=== PATIENT | female | born 1990 | race Caucasian/White ===

== ENCOUNTER 2018-03-07 06:46 | Emergency (ER) | payer BC ==
[2018-03-07 07:09] VITALS: TEMP 97.2
[2018-03-07] MEDS ORDERED: ACETAMINOPHEN 325 MG TAB PO ONE (07:15)
[2018-03-07] MEDS ORDERED: IBUPROFEN 200 MG TAB PO ONE (07:15)
--- NOTE | 2018-03-07 07:24 | ED.PDOC ---
History of Present Illness - General Chief Complaint: Headache Stated Complaint: headache x3 months Time Seen by Provider: 03/07/18 07:04 Source: patient, RN notes reviewed, Vital Signs reviewed Exam Limitations: no limitations - History of Present Illness Initial Comments: She reports daily headaches for 2-3 months. She discussed it with her PCP, was told it was migraines but she declined to take any migraine meds. She did have a 2 week interval of no pain but they returned about 2 weeks ago. They are all identical starting in the morning (gradually after awakening) & building throughout the day. They do not prevent her from sleeping nor do they awaken her. She is pain free after sleeping. There are no aggravating or alleviating factors. They are localized to an area over the left forehead & have begun to radiate to the left ear. With each headache she has tinnitus, ear fullness & decreased hearing. She does not have dental pain, TMJ. photophobia or audiophobia. She has never had problems with headaches before & has had no h/o head injury. She doesn't know of anyone in her family who might have had migraines. Timing/Duration: other - 2-3 months ago Quality: moderate, throbbing Head Injury Location: frontal Recent Head Trauma: no recent headache/trauma, frequent headaches Improving Factors: nothing Worsening Factors: nothing Associated Symptoms: other - occasionally she has nausea Allergies/Adverse Reactions: Allergies Sulfa Antibiotics Allergy (Verified 03/07/18 06:58) Home Medications: Ambulatory Orders Viridiana-Pren 1 each PO DAILY 02/20/15 Qlmrudyzml-Sriusvbnmcuek-Oeqgv [Fioricet] 1 cap PO Q8HRS PRN #10 cap 03/07/18 Review of Systems - Review of Systems Constitutional: States: no symptoms reported EENTM: States: see HPI Respiratory: States: no symptoms reported Genitourinary: States: no symptoms reported Musculoskeletal: States: no symptoms reported Skin: States: no symptoms reported Neurological: States: see HPI Hematologic/Lymphatic: States: no symptoms reported Past Medical History (General) - Patient Medical History Hx Thyroid Disease: Yes Hx Renal Disease: No Hx MRSA: Yes - Arm 2007 MRSA Source:: Wound - Vaccination History Hx Tetanus, Diphtheria Vaccination: No Hx Influenza Vaccination: No Hx Pneumococcal Vaccination: No - Social History Hx Tobacco Use: Yes Hx Alcohol Use: No Hx Substance Use: No - Female History Patient is a Female of Child Bearing Age (10 -59 yrs old): Yes Hx Last Menstrual Period: 10/02/14 Expected Date of Delivery:: 07/02/15 Family Medical History - Family History Mother Family History: Unknown Hx Family;Other: pt states no family history to report. Physical Exam - Physical Exam General Appearance: Alert, Comfortable, No apparent distress, Well Developed, Well Groomed, Well Hydrated, Well Nourished, Other - She drove up in the parking lot as I was coming in for work. Appeared fine & was walking without difficulty. 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 03/07/18 08:30 Atypical headache syndrome. I do not feel this represents an SAH nor that an LP is indicated. 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 She has scheduled f/u with her PCP in a couple of hours & I have encouraged to keep it & provided her with a copy of her CT report. I have also recommended she talk to the PCP about a neurology referral. 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 Copy, Patient Portal Self Enrollment Instructions: DI for Headache Referrals: [facility] SENIOR IV FEED PROJECT ENGINEER [Primary Care Provider] - 03/07/18 9:45 am (keep your appointment this morning) Prescriptions: Dnvagqehqp-Qflulbgspqtss-Rsoib [Fioricet] 1 cap PO Q8HRS PRN #10 cap PRN Reason: Headache/Migraine Pain Home Medications: Ambulatory Orders Viridiana-Pren 1 each PO DAILY 02/20/15 Ziodrumnsk-Ovgrmhxodhmcp-Wmqsg [Fioricet] 1 cap PO Q8HRS PRN #10 cap 03/07/18
--- NOTE | 2018-03-07 07:48 | CT ---
Study: CT of the Head. Indication: headache Technique: Axial CT images of the head were acquired without intravenous contrast. This exam was performed according to our departmental dose-optimization program, which includes automated exposure control, adjustment of the mA and/or kV according to patient size and/or use of iterative reconstruction technique. Comparison: None. Findings: No CT evidence of acute ischemia, acute hemorrhage, mass, mass effect, midline shift, or extra-axial fluid collection. Ventricles are normal in configuration without hydrocephalus. Brain parenchyma demonstrates a normal appearance for patient age. Paranasal sinuses are adequately aerated. Mastoid air cells are adequately aerated. Osseous structures and soft tissues are unremarkable. Impression: 1. No CT evidence of acute intracranial abnormality. Electronically signed by: Kristofer Pompa MD 03/07/2018 7:47 AM CDT
[2018-03-07 08:09] VITALS: BP 111/70; O2SAT 100
== END 2018-03-07 08:23 | disposition home or self-care (01) ==
LOC: ER 06:46
DX: G44.041 Chronic paroxysmal hemicrania, intractable (principal); E07.9 Disorder of thyroid, unspecified; Z87.891 Personal history of nicotine dependence; Z88.2 Allergy status to sulfonamides

== ENCOUNTER 2018-05-04 17:28 | Emergency (ER) | payer BC ==
--- NOTE | 2018-05-04 17:52 | ED.PDOC ---
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 SHE WAS CONCERNED CONTACTED HER DR'S OFFICE IN [place] WHO ADVISED HER TO COME HERE. 11+0 BY DATES. WENT TO ER IN [place] YESTERDAY REVIEWED THOSE LABS AND US. US 8+4 WK IUP NO CARDIAC ACTIVITY. RH+, NL HGB. STATES DESIRED TO ATTEMPT TO PASS WITH NO INTERVENTION. CAME HOME. TODAY PASSED GESTATIONAL SAC INTACT ACCORDING TO PT BUT HAS HAD HEAVY BLEEDING AND PASSING CLOTS. 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 Denies: fever EENTM: States: no symptoms reported Respiratory: States: no symptoms reported Cardiology: States: no symptoms reported Gastrointestinal/Abdominal: States: abdominal pain. Denies: nausea, vomiting Genitourinary: States: other - VAG BLEEDING WITH CLOTS. Musculoskeletal: States: no symptoms reported Skin: States: no symptoms reported Neurological: States: no symptoms reported Endocrine: States: no symptoms reported Hematologic/Lymphatic: States: other - REPORTS SHE HAD HEAVY POST BLEEDING WITH HER FIRST THAT REQUIRED TRANSFUSION BUT DENIES BLEEDING HX OTHERWISE. Past Medical History (General) - Patient Medical History Hx Thyroid Disease: Yes Hx Renal Disease: No Hx MRSA: Yes - Arm 2008 MRSA Source:: Wound Surgical History: no surgical history - Vaccination History Hx Tetanus, Diphtheria Vaccination: No Hx Influenza Vaccination: No Hx Pneumococcal Vaccination: No - Social History Hx Tobacco Use: No Hx Alcohol Use: No Hx Substance Use: No - Female History Patient is a Female of Child Bearing Age (10 -59 yrs old): Yes Hx Last Menstrual Period: 02/16/18 Patient : Yes Expected Date of Delivery:: 07/02/15 Family Medical History - Family History Mother Family History: Unknown Hx Family;Other: pt states no family history to report. Physical Exam - Physical Exam General Appearance: Alert, No apparent distress Eyes, Ears, Nose, Throat Exam: PERRL/EOMI, normal ENT inspection Neck: non-tender, full range of motion, supple Cardiovascular/Respiratory: regular rate, rhythm, no M/R/G Gastrointestinal/Abdominal: normal bowel sounds, non tender, soft, no organomegaly Back Exam: normal inspection, no CVA tenderness Extremity: normal range of motion, non-tender, normal inspection Neurologic: alert, normal mood/affect Skin Exam: normal color, warm/dry Lymphatic: no adenopathy Progress - Progress Progress: 05/04/18 19:06 D/W DR BLOUNT DYE WORKER FOR DR STEEL (PT'S OB). REQUESTED REPEAT SONO. HAVE CALL US BUT NO RESPONSE OF NOW. IF NO US AVAILABLE RECOMMENDED CONTINUED OBSERVATION WITH METHERGINE. PT REFUSED METHERGINE. PT ALSO REFUSED NS BOLUS. HAS APPT TOMORROW WITH DR STEEL. ADVISED OK FOR D/C AND HAVE GIVEN EXPLICIT INSTRUCTIONS ON WHEN TO RETURN. 05/04/18 20:43 PELVIC US: NO IUP/RETAINED PLACENTAL FRAGMENTS. Departure - Departure Clinical Impression: Spontaneous ICD-10 Supporting Text: INEVITABLE VS INCOMPLETE. Disposition: Discharge to Home or Self Care Departure Forms: ED Discharge - Pt. Copy, Patient Portal Self Enrollment Referrals: [facility]EN[facility] IV HOSPITAL AIDE [Primary Care Provider] - 1-2 Weeks Home Medications: Ambulatory Orders Levothyroxine Sodium [Levothyroxine Sodium] 1 each PO DAILY 05/04/18
[2018-05-04] MEDS ORDERED: SODIUM CHLORIDE 0.9% 1000ML 1,000 ML IVS ONE (17:54)
--- NOTE | 2018-05-04 20:24 | US ---
EXAM DESCRIPTION: OB ,Early (0-14wks) CLINICAL HISTORY: 10wks 6days , bleeding COMPARISON: None. FINDINGS: [Transabdominal ] [ ] images of the pelvis were submitted. No IUP is seen. No previous ultrasound demonstrating IUP is available for comparison. Left ovarian cyst measures 21 x 21 x 25 mm. Endometrium is thickened at 13 mm. The uterus measures 11.1 x 6.3 x 6.2 cm, right ovary 23 x 26 x 22 mm, left ovary 31 x 32 x 28 mm. No IUP is seen. There is no sonographic evidence of ovarian torsion. There is no significant free fluid in the pelvis. IMPRESSION: No IUP is seen. Ectopic is not excluded by imaging but the patient reports having passed a sac and fetus this afternoon. Left ovarian cyst is almost certainly benign and no follow-up is recommended unless there is persistent clinical concern for ectopic , in which case follow-up to document resolution is recommended. Electronically signed by: Madi Bautista 05/04/2018 8:22 PM CDT
[2018-05-04 20:43] VITALS: BP 110/74; O2SAT 100
[2018-05-04 21:00] VITALS: TEMP 98.7
== END 2018-05-04 20:45 | disposition home or self-care (01) ==
LOC: ER 17:28
DX: O03.9 Complete or unspecified spontaneous abortion without complication (principal); E07.9 Disorder of thyroid, unspecified; Z88.2 Allergy status to sulfonamides

== ENCOUNTER 2018-05-25 17:57 | Emergency (ER) | payer BC ==
[2018-05-25 18:30] VITALS: TEMP 98.5; O2SAT 100
--- NOTE | 2018-05-25 19:05 | RAD ---
EXAM DESCRIPTION: Chest,2 Views CLINICAL HISTORY: 27 years Female chest pain, mild sob, 2 wks s/p sab COMPARISON: None. FINDINGS: The cardiomediastinal silhouette appears unremarkable. No consolidating infiltrates or pleural effusions. No pneumothorax. IMPRESSION: No acute abnormality is identified. Electronically signed by: Mary Power MD 05/25/2018 7:04 PM CDT
--- NOTE | 2018-05-25 19:22 | ED.PDOC ---
History of Present Illness - General Chief Complaint: Chest Pain/OK Stated Complaint: chest pain for 2 weeks Time Seen by Provider: 05/25/18 17:58 Source: patient Exam Limitations: no limitations - History of Present Illness Initial Comments: the patient is a 27-year-old female presenting to the emergency room secondary to atypical chest pain and atypical central upper back pain for the last couple of weeks. A couple weeks ago she did have a spontaneous miscarriage. She reports that she gets mildly short of breath with exercise and has some mild cramping between her shoulder blades when she goes for walking. No real focal chest pain. No nausea or vomiting. No diarrhea. She has had some mild anxiety.she has not yet started her oral antibiotic for her urinary tract infection. Timing/Duration: other - 2 weeks Severity: mild Improving Factors: nothing Worsening Factors: movement Associated Symptoms: chest pain, shortness of breath Allergies/Adverse Reactions: Allergies Sulfa Antibiotics Allergy (Verified 05/04/18 17:37) Home Medications: Ambulatory Orders Levothyroxine Sodium [Levothyroxine Sodium] 1 each PO DAILY 05/04/18 Liothyronine Sodium 12.5 mcg PO DAILY 05/25/18 Review of Systems - Review of Systems Constitutional: States: no symptoms reported EENTM: States: no symptoms reported Respiratory: States: short of breath Cardiology: States: chest pain Gastrointestinal/Abdominal: States: no symptoms reported Genitourinary: States: no symptoms reported Musculoskeletal: States: back pain Skin: States: no symptoms reported Neurological: States: anxiety Endocrine: States: no symptoms reported All other Systems: No Change from Baseline Past Medical History (General) - Patient Medical History Hx Stroke: No Hx Congestive Heart Failure: No Hx Thyroid Disease: Yes Hx Diabetes: No Hx Renal Disease: No Hx MRSA: Yes - Arm 2008 MRSA Source:: Wound Surgical History: no surgical history - Vaccination History Hx Tetanus, Diphtheria Vaccination: No Hx Influenza Vaccination: No Hx Pneumococcal Vaccination: No - Social History Hx Tobacco Use: Yes Hx Alcohol Use: No Hx Substance Use: No - Female History Patient is a Female of Child Bearing Age (10 -59 yrs old): Yes - had a miscarrage on 05/03/18-has not had a period since Hx Last Menstrual Period: 02/16/18 Patient : Yes Expected Date of Delivery:: 07/02/15 Family Medical History - Family History Mother Family History: Unknown Hx Family;Other: pt states no family history to report. Physical Exam - Physical Exam General Appearance: Alert, Anxious, No apparent distress Eye Exam: bilateral normal Ears, Nose, Throat: hearing grossly normal, normal ENT inspection, normal pharynx Neck: full range of motion, supple, normal inspection Respiratory: lungs clear, normal breath sounds, no respiratory distress, no accessory muscle use Cardiovascular/Chest: normal peripheral pulses, regular rate, rhythm, no edema Peripheral Pulses: radial,right: 2+, radial,left: 2+, dorsalis pedis,right: 2+, dorsalis pedis,left: 2+ Gastrointestinal/Abdominal: non tender, soft Rectal Exam: deferred Back Exam: normal inspection, no CVA tenderness, no vertebral tenderness Extremity: normal range of motion, non-tender, normal inspection, no pedal edema , normal capillary refill Neurologic: lens dotter II-XII nml as tested, no motor/sensory deficits, alert, normal mood/affect - she is anxious, oriented x 3 Skin Exam: normal color Comments: Vital Signs (72 hours) 05/25/18 05/25/18 18:26 19:01 Temperature 98.5 F Pulse Rate 70 Pulse Rate [ 70 70 Left Brachial] Respiratory 16 Rate Blood Pressure 112/62 [Left Arm] O2 Sat by Pulse 100 Oximetry Progress - Progress Progress: 05/25/18 19:22 the patient is a 27-year-old female presenting to the emergency room secondary to atypical chest and upper back pain present for the last couple of weeks. Source of this is not entirely certain however workup including lab work chest x-ray and EKG are all reassuring. I would encourage her to continue doing her exercises. Take big deep breaths and make herself cough. Stretching exercises can also help. ER warnings were given for any significant worsening. She can follow-up with her primary care doctor later this week otherwise. - Results/Orders Results/Orders: chest x-ray shows no acute pathology. Laboratory Tests 05/25/18 05/25/18 05/25/18 18:27 18:28 18:28 WBC 8.7 RBC 4.35 Hgb 12.7 Hct 38.3 MCV 88.0 MCH 29.2 MCHC 33.2 RDW 14.1 Plt Count 245 MPV 8.2 Absolute Neuts (auto) 6.10 Absolute Lymphs (auto) 1.80 Absolute Monos (auto) 0.60 Absolute Eos (auto) 0.10 Absolute Basos (auto) 0.10 Neutrophils % 70.2 Lymphocytes % 21.1 Monocytes % 7.0 Eosinophils % 1.1 Basophils % 0.6 D-Dimer, Quantitative 0.21 Sodium 140 Potassium 3.6 Chloride 106 Carbon Dioxide 27 Anion Gap 10.6 L BUN 9 Creatinine < 0.40 L BUN/Creatinine Ratio 22.0 H Random Glucose 102 Serum Osmolality 278.3 Calcium 9.2 Total Bilirubin 0.3 AST 20 ALT 13 Alkaline Phosphatase 56 Creatine Kinase 62 CK-MB (CK-2) 0.4 CK-MB (CK-2) % Not Reportable Troponin I < 0.02 B-Natriuretic Peptide 8.4 Serum Total Protein 7.5 Albumin 4.1 Globulin 3.4 Albumin/Globulin Ratio 1.2 Beta HCG, Quant 05/25/18 18:28 WBC RBC Hgb Hct MCV MCH MCHC RDW Plt Count MPV Absolute Neuts (auto) Absolute Lymphs (auto) Absolute Monos (auto) Absolute Eos (auto) Absolute Basos (auto) Neutrophils % Lymphocytes % Monocytes % Eosinophils % Basophils % D-Dimer, Quantitative Sodium Potassium Chloride Carbon Dioxide Anion Gap BUN Creatinine BUN/Creatinine Ratio Random Glucose Serum Osmolality Calcium Total Bilirubin AST ALT Alkaline Phosphatase Creatine Kinase CK-MB (CK-2) CK-MB (CK-2) % Troponin I B-Natriuretic Peptide Serum Total Protein Albumin Globulin Albumin/Globulin Ratio Beta HCG, Quant 0.7 EKG shows normal sinus rhythm at 69 bpm. Very mild right axis deviation. Normal R-wave progression. No acute ST segment changes or T-wave changes concerning for ischemia. Normal QT interval. Departure - Departure Clinical Impression: Atypical chest pain Disposition: Discharge to Home or Self Care Condition: Fair Departure Forms: ED Discharge - Pt. Copy, Patient Portal Self Enrollment Instructions: Chest Pain That Is Not Caused by the Heart (DC) Diet: regular diet Activity: increase activity as tolerated Referrals: [facility] SENIOR IV PHARMACOLOGIST [Primary Care Provider] - 1-5 Days Home Medications: Ambulatory Orders Levothyroxine Sodium [Levothyroxine Sodium] 1 each PO DAILY 05/04/18 Liothyronine Sodium 12.5 mcg PO DAILY 05/25/18 Additional Instructions: the patient is a 27-year-old female presenting to the emergency room secondary to atypical chest and upper back pain present for the last couple of weeks. Source of this is not entirely certain however workup including lab work chest x-ray and EKG are all reassuring. I would encourage her to continue doing her exercises. Take big deep breaths and make herself cough. Stretching exercises can also help. ER warnings were given for any significant worsening. She can follow-up with her primary care doctor later this week otherwise.
[2018-05-25 20:08] VITALS: BP 118/68
== END 2018-05-25 19:35 | disposition home or self-care (01) ==
LOC: ER 17:57
DX: R07.89 Other chest pain (principal); R06.02 Shortness of breath; M54.6 Pain in thoracic spine; E07.9 Disorder of thyroid, unspecified; Z88.2 Allergy status to sulfonamides; Z87.891 Personal history of nicotine dependence

== ENCOUNTER 2018-08-17 15:58 | Emergency (ER) | payer BC ==
[2018-08-17 16:12] VITALS: O2SAT 100
[2018-08-17] MEDS ORDERED: SODIUM CHLORIDE 0.9% (FLUSH) 10 ML SYG IV PRN (16:27)
--- NOTE | 2018-08-17 16:56 | ED.PDOC ---
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 PT IS APPROXIMATELY 9 WEEKS A1. PT DOES REPORT AN OUTPATIENT ULTRASOUND CONFIRMING IUP A FEW WEEKS AGO. PT DID NOT INFORM OB OF VAGINAL BLEEDING. Timing/Duration: this morning Quality: mild Activites at Onset: none Sexual intercourse history: single partner Improving Factors: nothing Worsening Factors: nothing Associated Symptoms: denies symptoms Allergies/Adverse Reactions: Allergies Sulfa Antibiotics Allergy (Verified 05/04/18 17:37) Home Medications: Ambulatory Orders Levothyroxine Sodium [Synthroid] 0.088 mg PO DAILY 08/17/18 Progesterone Micronized [Progesterone] 200 mg PO DAILY 08/17/18 Review of Systems - Review of Systems Constitutional: Denies: chills, fever Respiratory: Denies: cough, short of breath Cardiology: Denies: chest pain, palpitations Gastrointestinal/Abdominal: Denies: abdominal pain, nausea, vomiting Genitourinary: Denies: dysuria, frequency, hematuria Musculoskeletal: Denies: joint pain, joint swelling Skin: Denies: change in color, lesions Neurological: Denies: headache, numbness, paresthesia Endocrine: States: no symptoms reported Hematologic/Lymphatic: States: no symptoms reported Past Medical History (General) - Patient Medical History Hx Stroke: No Hx Congestive Heart Failure: No Hx Thyroid Disease: Yes Hx Diabetes: No Hx Renal Disease: No Hx MRSA: Yes MRSA Source:: Wound Surgical History: no surgical history - Vaccination History Hx Tetanus, Diphtheria Vaccination: No Hx Influenza Vaccination: No Hx Pneumococcal Vaccination: No - Social History Hx Tobacco Use: No Hx Alcohol Use: No Hx Substance Use: No - Female History Patient is a Female of Child Bearing Age (10 -59 yrs old): Yes Hx Last Menstrual Period: 06/11/18 Patient : Yes Expected Date of Delivery:: 03/18/19 Hx Gestational Age: 9 Family Medical History - Family History Mother Family History: Unknown Hx Family;Other: pt states no family history to report. Physical Exam - Physical Exam General Appearance: Alert, No apparent distress, Well Developed, Well Groomed, Well Hydrated Neck: normal inspection Cardiovascular/Respiratory: no respiratory distress Gastrointestinal/Abdominal: non tender, soft Back Exam: normal inspection Extremity: normal inspection Neurologic: alert, normal mood/affect, oriented x 3 Skin Exam: normal color, warm/dry Progress - Progress Progress: 08/17/18 17:58 PT RESTING COMFORTABLY. LAB FINDINGS, AFTERCARE INSTRUCTIONS DISCUSSED WITH PATIENT. - Results/Orders Results/Orders: Laboratory Tests 08/17/18 08/17/18 08/17/18 16:35 16:51 16:51 WBC 10.9 H RBC 4.40 Hgb 12.8 Hct 38.8 MCV 88.2 MCH 29.1 MCHC 33.0 RDW 13.7 Plt Count 230 MPV 8.5 Absolute Neuts (auto) 8.50 H Absolute Lymphs (auto) 1.50 Absolute Monos (auto) 0.70 Absolute Eos (auto) 0.10 Absolute Basos (auto) 0.00 Neutrophils % 78.4 H Lymphocytes % 14.1 L Monocytes % 6.7 Eosinophils % 0.5 L Basophils % 0.3 Beta HCG, Quant 499427.0 H Urine Color Yellow Urine Appearance Clear Urine pH 7.0 Ur Specific [place] 1.020 Urine Protein Negative Urine Glucose (UA) Negative Urine Ketones Negative Urine Blood Moderate H Urine Nitrite Negative Urine Bilirubin Negative Urine Urobilinogen 0.2 Ur Leukocyte Esterase Negative Urine RBC 5-10 H Urine WBC 0-1 Ur Epithelial Cells 3-5 Urine Bacteria Rare Procedures - Ultrasound Ultrasound: normal Progress: TRANS ABDOMINAL BEDSIDE ULTRASOUND PERFORMED BY ME USING CURVLINEAR PROBE. LIVE IUP WAS OBSERVED WITH CARDIAC ACTIVITY. Departure - Departure Clinical Impression: Threatened in first trimester Time of Disposition: 17:59 Disposition: Discharge to Home or Self Care Condition: Good Departure Forms: ED Discharge - Pt. Copy, Patient Portal Self Enrollment Instructions: DI for Threatened Activity: no exercise, no lifting Referrals: [facility] SENIOR IV, RESEARCH AND DEVELOPMENT DIRECTOR [Primary Care Provider] - 1-5 Days Home Medications: Ambulatory Orders Levothyroxine Sodium [Synthroid] 0.088 mg PO DAILY 08/17/18 Progesterone Micronized [Progesterone] 200 mg PO DAILY 08/17/18
[2018-08-17 17:04] VITALS: TEMP 98.2
[2018-08-17 17:35] VITALS: BP 108/67
== END 2018-08-17 18:05 | disposition home or self-care (01) ==
LOC: ER 15:58
DX: O20.0 Threatened abortion (principal); O99.281 Endocrine, nutritional and metabolic diseases complicating pregnancy, first trimester; E07.9 Disorder of thyroid, unspecified; Z3A.09 9 weeks gestation of pregnancy

== ENCOUNTER 2019-03-29 00:49 | Emergency (ER) | payer BC ==
[2019-03-29 01:09] VITALS: TEMP 98.2
--- NOTE | 2019-03-29 01:41 | ED.PDOC ---
History of Present Illness - General Chief Complaint: Blood Pressure Problem Stated Complaint: elevated blood pressure Time Seen by Provider: 03/29/19 00:57 Source: patient Exam Limitations: no limitations - History of Present Illness Initial Comments: Patient presents with elevated blood pressure. at 3 days post-partem. She had an uncomplicated but says that her blood pressure went up during labor. She had a term . She denies being pre-eclamptic or having had gestational hypertension. She says that she had a significant amount of edema during the that caused orthopnea. She still has some edema and orthopnea. She has been taking her blood pressure at home in the morning and at night. Tonight she measured a systolic in the 160s so she came to the E.R. No dyspnea. No chest pain. The infant is breast-feeding and there has not been any complications with that. The patient has had a small amount of blood per vagina but that is improving. No chest pain or calf pain. No other complaints. Timing/Duration: other - 3 days Severity: moderate Improving Factors: nothing Worsening Factors: nothing Associated Symptoms: other - as in HPI Allergies/Adverse Reactions: Allergies Sulfa Antibiotics Allergy (Verified 05/04/18 17:37) Home Medications: Ambulatory Orders Levothyroxine Sodium [Synthroid] 0.088 mg PO DAILY 08/17/18 Progesterone Micronized [Progesterone] 200 mg PO DAILY 08/17/18 Review of Systems - Review of Systems Constitutional: States: no symptoms reported EENTM: States: no symptoms reported Respiratory: States: no symptoms reported Cardiology: States: edema Gastrointestinal/Abdominal: States: no symptoms reported Genitourinary: States: no symptoms reported Musculoskeletal: States: no symptoms reported Skin: States: no symptoms reported Neurological: States: no symptoms reported Endocrine: States: no symptoms reported Hematologic/Lymphatic: States: no symptoms reported Past Medical History (General) - Patient Medical History Hx Seizures: No Hx Stroke: No Hx Dementia: No Hx Asthma: No Hx of COPD: No Hx Cardiac Disorders: No Hx Congestive Heart Failure: No Hx Pacemaker: No Hx Hypertension: No Hx Thyroid Disease: Yes Hx Diabetes: No Hx Gastroesophageal Reflux: No Hx Renal Disease: No Hx MRSA: Yes MRSA Source:: Wound Surgical History: no surgical history - Vaccination History Hx Tetanus, Diphtheria Vaccination: Yes Hx Influenza Vaccination: No Hx Pneumococcal Vaccination: No - Social History Hx Tobacco Use: No Hx Alcohol Use: No Hx Substance Use: No Hx Depression: No - Female History Hx Last Menstrual Period: 06/11/18 Patient : Yes Expected Date of Delivery:: 03/18/19 Hx Gestational Age: 9 Family Medical History - Family History Mother Family History: Unknown Hx Family;Other: pt states no family history to report. Physical Exam - Physical Exam General Appearance: Alert Respiratory: lungs clear, normal breath sounds Cardiovascular/Chest: normal peripheral pulses, regular rate, rhythm, other - 1+ non-pitting edema bilateral LEs Gastrointestinal/Abdominal: normal bowel sounds, non tender, soft Back Exam: normal inspection, no CVA tenderness Skin Exam: normal color Progress - Progress Progress: 03/29/19 01:42 Laboratory Tests 03/29/19 03/29/19 03/29/19 01:19 01:49 01:49 WBC 8.7 RBC 3.72 L Hgb 10.1 L Hct 30.9 L MCV 83.0 MCH 27.3 MCHC 32.8 L RDW 15.9 H Plt Count 227 MPV 7.6 Absolute Neuts (auto) 6.10 Absolute Lymphs (auto) 1.70 Absolute Monos (auto) 0.70 Absolute Eos (auto) 0.10 Absolute Basos (auto) 0.10 Neutrophils % 71.0 Lymphocytes % 19.4 L Monocytes % 7.6 Eosinophils % 1.2 Basophils % 0.8 Sodium 139 Potassium 3.4 L Chloride 106 Carbon Dioxide 24 Anion Gap 12.4 BUN 11 Creatinine 0.49 L BUN/Creatinine Ratio 22.4 H Random Glucose 102 Serum Osmolality 277.1 Calcium 8.4 Total Bilirubin 0.3 AST 29 ALT 25 Alkaline Phosphatase 99 Serum Total Protein 6.3 L Albumin 2.9 L Globulin 3.4 Albumin/Globulin Ratio 0.9 L TSH 3.72 Thyroxine (T4) 12.76 H Urine Color Yellow Urine Appearance Sl cloudy Urine pH 7.5 Ur Specific [place] 1.015 Urine Protein 30 Urine Glucose (UA) Negative Urine Ketones Negative Urine Blood Large H Urine Nitrite Negative Urine Bilirubin Negative Urine Urobilinogen 0.2 Ur Leukocyte Esterase Small H Urine RBC Tntc H Urine WBC 20-30 H Ur Epithelial Cells 5-10 Urine Bacteria 2+ H UA shows bleeding most likely from the vagina. Not a valid specimen. No significant LE or nitrates. Patient was reassured that the blood pressure should continue to go down as the edema resolves and that it might take one or two months. She was encouraged to check her blood pressure first thing in the morning and keep a record to give to her pcp. Care instructions given. E.R. warnings given. Questions were elicited and answered. Patient voiced understanding and agreement with the plan. 03/29/19 02:38 Departure - Departure Clinical Impression: Hypertension Disposition: Discharge to Home or Self Care Condition: Good Departure Forms: ED Discharge - Pt. Copy, Patient Portal Self Enrollment Instructions: High Blood Pressure and Diet: other - as per your primary physician Activity: increase activity as tolerated Referrals: [facility] [Primary Care Provider] - 1-2 Weeks Home Medications: Ambulatory Orders Levothyroxine Sodium [Synthroid] 0.088 mg PO DAILY 08/17/18 Progesterone Micronized [Progesterone] 200 mg PO DAILY 08/17/18 Additional Instructions: Take your blood pressure first thing in the morning. You should see it trend down over the next several days to weeks. Return to the E.R. for a pressure greater than 180 systolic (top number) or 110 diastolic (bottom number). 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 Return to the E.R. for chest pain, shortness of breath, or calf pain. Have your thyroid hormones checked again in two weeks.
[2019-03-29 02:34] VITALS: BP 145/99; O2SAT 97
== END 2019-03-29 02:44 | disposition home or self-care (01) ==
LOC: ER 00:49
DX: I10 Essential (primary) hypertension (principal); E07.9 Disorder of thyroid, unspecified; Z79.899 Other long term (current) drug therapy; Z88.2 Allergy status to sulfonamides

== ENCOUNTER → 2019-10-13 | Outpatient (CLI) | payer BC | DX: O90.3 Peripartum cardiomyopathy (principal) ==